=== PATIENT | female | born 1985 | race Caucasian/White ===

== ENCOUNTER 2023-07-09 12:09 | Day surgery (SDC) | payer SELFPAY ==
[2023-07-09 12:28] VITALS: BMI 30.7
== END 2023-07-09 13:45 | disposition home or self-care (01) ==
LOC: CSHLD/OP 12:09
PROVIDERS: ATTEND Obstetrics & Gynecology
DX: O48.0 Post-term pregnancy (principal); O09.43 Supervision of pregnancy with grand multiparity, third trimester; O99.283 Endocrine, nutritional and metabolic diseases complicating pregnancy, third trimester; E03.9 Hypothyroidism, unspecified; Z3A.42 42 weeks gestation of pregnancy; Z88.2 Allergy status to sulfonamides; Z79.890 Hormone replacement therapy
CPT/HCPCS: 76819